=== PATIENT | male | born 1975 | race Caucasian/White ===

== ENCOUNTER 2020-03-28 10:17 | Observation (INO) | payer OTHER, SELFPAY ==
[2020-03-28] VITALS (10 sets, daily range): BP systolic 113–158; BP diastolic 57–93; PULSE 59–80; RESP 16–18; TEMP 36.6–37.6; O2SAT 95–97; BMI 34.6; BMI 33.7
--- NOTE | 2020-03-28 10:22 | EKG12_ITS ---
Test Reason : AM EKG Blood Pressure : / mmHG Vent. Rate : 064 BPM Atrial Rate : 064 BPM P-R Int : 142 ms QRS Dur : 090 ms QT Int : 404 ms P-R-T Axes : 042 040 017 degrees QTc Int : 416 ms Normal sinus rhythm Normal ECG When compared with ECG of 28-MAR-2020 13:03, MANUAL COMPARISON REQUIRED, DATA IS UNCONFIRMED Confirmed by ALFREDO DONALDSON, ANI ([id number]), medical editor JR OCAMPO ([id number]) on 04/01/2020 1:26:27 PM Referred By: DR ROSS Confirmed By:ANI FUENTES MD
--- NOTE | 2020-03-28 10:23 | ED.DCSUM_ITS ---
History of Present Illness Chief Complaint: Neuro S/Sx Informant: Patient Onset: Today Context: Gradual Onset Timing: Continuous Current Severity: Moderate Maximum Severity: Moderate Narrative: The patient is a 44-year-old male with no significant medical history that presents to the emergency department with chest tightness, tingling in his left arm, and dyspnea. Patient states that yesterday, he was just feeling some generalized malaise. He thought it was secondary to the heat. He states today he was at work. He had sudden onset lightheadedness like he was going to pass out. He had tightness across his left chest into his left armpit. He states that his arms and legs felt heavy and he noticed some numbness down his left arm. He is never had symptoms like this before. He does have a remote history of smoking. He has no history of coronary vascular disease. He denies orthopnea or leg swelling. He denies cough. He has had no headache, changes in vision, change in speech, or other neurologic symptoms. He describes it as tingling and not weakness. Prior similar symptoms: No Recent Illness/Hospitalization: No Past Medical History - Allergies and Home Meds Allergies/Adverse Reactions: Allergies No Known Allergies Allergy (Verified 03/28/20 10:17) Primary Care Physician: Preston De La Rosa DO [Primary Care Provider] - Prior records reviewed: Yes Past Medical History: None Surgical History: noncontributory Review of Systems General: Denies: Chills, Fever, Sweats Eyes: Denies: Visual changes - bilaterally, Diplopia ENT: Denies: Rhinorrhea, Sore throat Cardiovascular: Reports: Chest pain. Denies: Palpitations Respiratory: Reports: Dyspnea. Denies: Cough, Dyspnea on exertion Gastrointestinal: Denies: Abdominal pain, Nausea, Vomiting, Diarrhea, Melena, Hematochezia Genitourinary: Denies: Dysuria, Hematuria, Frequency Musculoskeletal: Denies: Back pain, Extremity Pain Skin: Denies: Rash, Wounds Neurological: Reports: Parasthesia. Denies: Headache, Weakness, Numbness Physical Exam Inital Vital Signs reviewed: Yes General: Well nourished, Well developed, No Acute Distress Head: Normocephalic, Atraumatic Eyes: Perrl, EOMI ENT: Moist mucous membranes, No rhinorrhea Neck: Supple, Nontender Cardiovascular: Regular rate, Regular rhythm, No murmurs Respiratory: No distress, CTA bilaterally, Chest nontender Abdomen: Soft, Nontender, Nondistended, Normal bowel sounds Back: Nontender, Normal Inspection Extremities: Nontender, No edema Skin: Normal color, No rash Neurological: Alert, Oriented x3, Cranial nerves II-XII grossly intact, Normal Strength, Normal Sensation Psychological: Normal affect, Normal Mood Diagnostic/Tx/Re-eval Clinical Impression(s) from Imaging Studies Chest X-Ray 03/28/20 10:37 IMPRESSION: Normal x-ray examination of the chest. Electronically Signed: Toni Chaves, at 10:52 EDT , Service support , Abnormal Lab Results 03/28/20 03/28/20 03/28/20 10:20 10:20 10:20 WBC 8.5 RBC 4.75 Hgb 14.8 Hct 44.0 MCV 92.6 MCH 31.2 MCHC 33.6 RDW Std Deviation 40.2 RDW Coeff of Dayanara 11.8 Plt Count 344 MPV 9.1 Immature Gran % (Auto) 0.400 Neut % (Auto) 50.2 Lymph % (Auto) 40.1 [place] % (Auto) 6.6 Eos % (Auto) 1.6 Baso % (Auto) 1.1 H Absolute Neuts (auto) 4.3 Absolute Lymphs (auto) 3.41 Nucleated RBC % 0 Sodium 137 Potassium 3.5 Chloride 104 Carbon Dioxide 27.0 Anion Gap 6 BUN 12 Creatinine 0.89 Estim Creat Clear Calc 107.08 Est GFR (MDRD) Af Amer 118 Est GFR (MDRD) Non-Af 98 BUN/Creatinine Ratio 13.5 Glucose 152 H Calcium 9.2 Troponin I < 0.015 B-Natriuretic Peptide 18.9 POC Glucose 03/28/20 10:20 WBC RBC Hgb Hct MCV MCH MCHC RDW Std Deviation RDW Coeff of Dayanara Plt Count MPV Immature Gran % (Auto) Neut % (Auto) Lymph % (Auto) [place] % (Auto) Eos % (Auto) Baso % (Auto) Absolute Neuts (auto) Absolute Lymphs (auto) Nucleated RBC % Sodium Potassium Chloride Carbon Dioxide Anion Gap BUN Creatinine Estim Creat Clear Calc Est GFR (MDRD) Af Amer Est GFR (MDRD) Non-Af BUN/Creatinine Ratio Glucose Calcium Troponin I B-Natriuretic Peptide POC Glucose 177 H - Rhythm Strip Rhythm Strip: Sinus Rhythm Rate: 80 Ectopy: None - EKG Initial EKG Interpretation: Sinus Rhythm, No Acute Injury Pattern Prior: No Prior - Medical Decision Making The patient presents with intermittent chest pain for the past 24 hours. He states that it was significant today into his left chest and left arm. He also felt short of breath, nauseated, near syncopal. EKG was obtained on patient arrival. It was sinus rhythm. There is no acute ischemia. Patient was kept on a monitor. He had already received aspirin. His pain had resolved and he did not want nitro. Metabolic work-up including cardiac enzymes were negative. The patient did have recurrence of pain that lasted about 5 minutes and then resolved again. With his waxing and waning chest pain, history of smoking, along with the description of his pain, I am concerned for cardiac causes. I do feel that he would best be served with observation for cardiac rule out. Patient was discussed with the hospitalist. Impression 1. Chest pain-concern for ACS ED Disposition - Plan for ED Patient: Referrals: Preston De La Rosa DO [Primary Care Provider] -
[2020-03-28 10:26] LABS: Bedside Glucose 177 mg/dL (70-110)
[2020-03-28 10:31] LABS: Absolute Lymphocyte Count 3.41 X10^3/uL (0.83-4.51); Absolute Neutrophil Count 4.3 X10^3/uL (2.0-7.7); Basophil# 0.09 X10^3/uL; Basophil% 1.1 % (0-1); Eosinophil# 0.14 X10^3/uL; Eosinophils% 1.6 % (0-5); Hemoglobin 14.8 g/dL (13.0-16.5); Lymphocyte # 3.41 X10^3/ul (4.0); Lymphocyte % 40.1 % (19-41); Mean Corp Hgb Conc 33.6 g/dL (32-36); Mean Corpuscular Hgb 31.2 pg (27.0-32.0); Mean Corpuscular Volume 92.6 fL (80-94); Mean Platelet Vol. 9.1 fl (6.2-12.0); Monocyte# 0.56 X10^3/uL; Monocyte% 6.6 % (0-10); NRBC Flagged by Analyzer 0 % (0-5); Neutrophil # 4.28 X10^3/uL (2.7-7.7); Neutrophil % 50.2 % (47-70); Platelet Count 344 K/mm3 (150-450); RBC Distribution Width CV 11.8 % (11.6-14.6); RBC Distribution Width SD 40.2 fl (35.1-43.9); Red Blood Count 4.75 M/mm3 (4.6-6.2); White Blood Count 8.5 K/mm3 (4.4-11.0)
--- NOTE | 2020-03-28 10:37 | RAD_ITS ---
STUDY: X-RAY CHEST REASON FOR EXAM: Male, 44 years old. SOB, DIZZINESS, L ARM NUMBNESS, FATIGUE TECHNIQUE: Single AP portable view of the chest. COMPARISON: None. FINDINGS: EKG electrodes are seen. The lungs are clear and expanded. There is no demonstrated pleural abnormality. Normal size heart. Normal mediastinum and destiney. Normal visualized pulmonary arteries. Normal visualized aortic arch and descending thoracic aorta. Normal visualized thoracic spine. Normal visualized ribs, clavicles, and shoulders. There is no demonstrated abnormality of the visualized soft tissue structures of the upper abdomen. RAD/Chest 1 View (Portable) IMPRESSION: Normal x-ray examination of the chest. Electronically Signed: Toni Chaves, at 10:52 EDT , Service support ,
[2020-03-28 10:49] LABS: Anion Gap 6 (5-15); BNP,B-Type NATRIURETIC PEPTIDE 18.9 pg/mL (0-100); BUN 12 mg/dL (7-18); BUN/Creat Ratio 13.5 RATIO (10-20); Calcium,Total 9.2 mg/dL (8.5-10.1); Chloride 104 mmol/L (98-107); Creatinine, Serum 0.89 mg/dL (0.70-1.30); EST Glomerular Filtration Rate 98 mL/min (>60); Est Glom Filt Rate - Afr Amer 118 mL/min (>60); Estimated Creatinine Clearance 107.08 ml/min; Glucose 152 mg/dL (74-106); Potassium 3.5 mmol/L (3.5-5.1); Sodium Level 137 mmol/L (136-145)
--- NOTE | 2020-03-28 12:16 | HP.PCM_ITS ---
Problem List (1) Chest pain Status: Acute History of Present Illness Date of Admission: 03/28/20 Chief Complaint: Left arm tingling, dizziness, chest pressure. The patient is a 44 year old M with no significant past medical history presented to the emergency room because of tingling in the left arm, dizziness and chest tightness. His symptoms started this morning after he went to work, started having tingling and numbness on the left arm, became dizzy and lightheaded and he started having chest pain. Chest pain was in the left side, pressure-like pain, 2 out of 10 in severity, not radiating, associated with dizziness, palpitation as well as shortness of breath and he was about to pass out. There was no aggravating or relieving factors. His gave him 4 tabs of aspirin on the way to the emergency department. He denied blurred vision, sl urred speech, focal arm or leg weakness. At this time, he mentioned the chest pressure is getting better and all over, he is feeling better. In the emergency department, his blood pressure was slightly elevated, other vital signs were stable. Routine blood work was remarkable for glucose of 152, 177 but patient mentioned that he drank a can of Mountain Dew. Other routine blood work was unremarkable. EKG revealed normal sinus rhythm, normal GA interval, normal QRS, no ischemic changes or cardiac arrhythmias. Troponin and BNP were normal. Chest x-ray shows no acute findings. He is being admitted for atypical chest pain for evaluation. Past Medical History Allergies No Known Allergies Allergy (Verified 03/28/20 10:17) Home Medications: Ambulatory Orders Medication Instructions Recorded Colostrum, Bovine [Colostrum] 500 mg PO DAILY 03/28/20 Multivitamins,Therapeutic 1 tab PO DAILY 03/28/20 [Multivitamin] Surgical History: noncontributory Psychiatric History: No pertinent psych hx Lives: Spouse/ Significant Other Smoking Status: Former smoker Alcohol: None Drugs: None - *Family History Paternal History Items: No pertinent history Maternal History Items: No pertinent history Review of Systems Constitutional: Denies: Anorexia, Chills, Fever, Weakness Eyes: Denies: Blurred vision, Double vision, Drainage, Redness HEENT: Denies: Difficulty Hearing, Ear Pain, Eye Pain, Nasal Congestion, Sore Throat Cardiovascular: Reports: Chest Pain, Chest Pressure, Light Headedness. Denies: Edema, Heaviness, Orthopnea, Palpitations, Paroxysmal Noc. Dyspnea, Syncope Respiratory: Reports: Shortness of Breath. Denies: Cough, Pleuritic Pain, Sputum production, Wheezing Gastrointestinal: Denies: Abdominal Pain, Constipation, Diarrhea, Nausea, Vomiting Genitourinary: Denies: Dysuria, Frequency, Hematuria Musculoskeletal: Denies: Arm Pain, Back Pain, Foot Pain Skin: Denies: Dryness, Rash Neurological: Reports: Numbness, Tingling. Denies: Balance problems, Double vision, Change in Speech, Confusion, Focal weakness, Headaches Psychiatric: Denies: Anxiety, Depression Endocrine: Denies: Change in Body Habitus, Polydipsia, Polyuria VTE Information - Inpt Only VTE Present on Admission: No VTE Mechan Device Prophylaxis: None VTE Pharm Prophylaxis ordered?: No Patient Problems: Active and Suspected Problems Chest pain (Acute) - Physical Exam Vitals/I&O's: Vital Signs Temp Pulse Resp BP Pulse Ox 98.5 F 80 16 158/93 H 96 03/28/20 11:21 03/28/20 10:18 03/28/20 10:18 03/28/20 10:18 03/28/20 10:26 Oxygen Delivery Method Room Air Weight: 241 lb 2.971 oz Body Mass Index (BMI) 34.6 Finger Stick Blood Glucose 177 General: Alert, Oriented x3, Cooperative, No apparent distress HEENT: Atraumatic, PERRLA, EOMI, Normocephalic Oral: Moist Mucosa, No Gingival or Mucosal Lesions/ Ulcerations Neck: Supple, No JVD, Negative Carotid Bruits, Trachea Midline, Thyroid Normal Size and Texture Lungs: Clear to auscultation, Normal air movement, No rhonchi, No wheeze, No rales Cardiovascular: Regular rate, Regular Rhythm, Normal S1, Normal S2, No murmurs, PMI Normal Abdomen: Bowel Sounds Present, Soft, Non Tender, Non-Distended, No Hepato- splenomegaly Extremities: No clubbing, No cyanosis, No edema Skin: No rashes, No breakdown Lymphatic: No Cervical, Supraclavicular, or Inguinal Adenopathy Neurological: Cranial nerves II-XII grossly intact, Motor Exam 5/5 strength throughout Psych/Mental Status: Normal Affect, Appropriate, Alert and oriented to time, place, person, mood and affect Laboratory Results 03/28/20 10:20: WBC 8.5, RBC 4.75, Hgb 14.8, Hct 44.0, MCV 92.6, MCH 31.2, MCHC 33.6, RDW Std Deviation 40.2, RDW Coeff of Dayanara 11.8, Plt Count 344, MPV 9.1, Immature Gran % (Auto) 0.400, Neut % (Auto) 50.2, Lymph % (Auto) 40.1, [place] % (Auto) 6.6, Eos % (Auto) 1.6, Baso % (Auto) 1.1 H, Absolute Neuts (auto) 4.3, Absolute Lymphs (auto) 3.41, Nucleated RBC % 0 03/28/20 10:20: Sodium 137, Potassium 3.5, Chloride 104, Carbon Dioxide 27.0, Anion Gap 6, BUN 12, Creatinine 0.89, Estim Creat Clear Calc 107.08, Est GFR (MDRD) Af Amer 118, Est GFR (MDRD) Non-Af 98, BUN/Creatinine Ratio 13.5, Glucose 152 H, Calcium 9.2, Troponin I < 0.015 03/28/20 10:20: B-Natriuretic Peptide 18.9 03/28/20 10:20: POC Glucose 177 H Clinical Impression(s) from Imaging Studies Chest X-Ray 03/28/20 10:37 IMPRESSION: Normal x-ray examination of the chest. Electronically Signed: Toni Chaves, at 10:52 EDT , Service support , Current Medications Nitroglycerin (Nitrostat) 0.4 mg SUBLINGUAL Q5M PRN PRN Reason: Chest pain Assessment/Plan All Active Problems Chest pain (Acute) This is a 44 years old male patient presented to the emergency room because of left arm numbness, dizziness followed by chest pressure and is being admitted for evaluation. #1 atypical chest pain: Risk factors are history of smoking, he quit smoking now. No family history of treatment of CAD. No personal or family history of diabetes, hypertension hyperlipidemia. EKG revealed no acute ischemic changes. Troponin was negative. Plan: Admit to PCU observation, cardiac monitoring, serial cardiac enzymes, repeat EKG tomorrow morning, lipid profile, start baby a spirin, sublingual nitroglycerin PRN, nuclear stress test tomorrow morning if cardiac enzymes are negative. #2 near syncopal episode: Could be related to this chest pain versus cardiac arrhythmias. Patient reported that he was having palpitation and he was about to pass out. Plan: youth nutritional monitor, 2D echocardiogram. #3 hyperglycemia: Patient took a can of Mountain Dew, no history of diabetes. Will check hemoglobin A1c. #4 DVT prophylaxis: Low risk patient, no prophylaxis indicated. This note was generated with [employer] dictation software. It may contain incorrect words, spelling, and punctuation that were not noted in checking the note before signing. OBSV E&M: 76587 Initial observation care L3
--- NOTE | 2020-03-28 13:03 | EKG12_ITS ---
Test Reason : CP ADMISSION Blood Pressure : / mmHG Vent. Rate : 066 BPM Atrial Rate : 066 BPM P-R Int : 136 ms QRS Dur : 092 ms QT Int : 408 ms P-R-T Axes : 039 035 013 degrees QTc Int : 427 ms Normal sinus rhythm Normal ECG No previous ECGs available Confirmed by ALFREDO DONALDSON, ANI ([id number]), editorial director JP VERONICA ([id number]) on 04/01/2020 3:28:25 PM Referred By: CODY Confirmed By:ANI FUENTES MD
--- NOTE | 2020-03-28 13:18 | ECHOD_ITS ---
Reason For Study: SYNCOPE/NEAR SYNCOPE Procedure This was a 2D Doppler, Color Flow transthoracic echocardiogram. Exam performed portable in patient room. Left Ventricle Normal LV size. Left ventricular systolic function is normal. The estimated ejection fraction is 60 %. No evidence for diastolic dysfunction. No regional wall motion abnormalities noted. Right Ventricle Normal RV size. Normal systolic function. Atria Normal left atrium. Normal right atrium. Mitral Valve Normal mitral valve. Tricuspid Valve Normal tricuspid valve. Aortic Valve Normal aortic valve. Pulmonic Valve Normal pulmonic valve. Great Vessels Normal aortic root. The pulmonary artery is normal size. Normal inferior vena cava. Pericardium/Pleural No pericardial effusion. MMode/2D Measurements & Calculations LVIDd: 4.9 cm IVSd: 1.0 cm Ao root diam: 3.4 cm LVIDs: 3.1 cm LVPWd: 0.91 cm FS: 37.3 % LAV(MOD-bp): 68.9 ml LA A4 area: 21.5 cm2 LA dimension(2D): 4.0 cm LAV(MOD-bp) Indexed: 30.9 ml/m2 LAV(MOD-sp2): 59.7 ml LAV(MOD-sp4): 59.4 ml RA A4 area: 15.2 cm2 Time Measurements MV dec time: 0.19 sec Doppler Measurements & Calculations MV E max lauro: 83.7 cm/sec Lat Peak E' Lauro: 9.9 cm/sec Med Peak E' Lauro: 10.8 cm/sec MV A max lauro: 54.0 cm/sec E/E' lat: 8.5 E/E' med: 7.8 MV E/A: 1.5 Ao V2 max: 129.9 cm/sec LV V1 max: 110.5 cm/sec PA V2 max: 95.2 cm/sec Ao max P.8 mmHg LV V1 max P.9 mmHg Interpretation Summary Normal LV size. Left ventricular systolic function is normal. The estimated ejection fraction is 60 %. No evidence for diastolic dysfunction. Ordering Physician: Sony Platt Referring Physician: Preston De La Rosa Performed By: Luz Bennett, MARU, RVT
[2020-03-28 14:49] LABS: Thyroid Stim Hormone (TSH) 1.57 uIU/mL (0.358-3.74)
[2020-03-28 14:56] LABS: Hemoglobin A1c 5.7 % (3.8-5.6)
[2020-03-29 03:00] VITALS: PULSE 63
[2020-03-29 03:30] VITALS: BP 105/61; PULSE 64; RESP 16; TEMP 36.8; O2SAT 95
[2020-03-29 05:48] LABS: Cholesterol 170 mg/dL (200); High Density Lipoprotein 38 mg/dL; Triglycerides 112 mg/dL; Very Low Density Lipoprotein 22 mg/dL (5-40)
--- NOTE | 2020-03-29 05:55 | EKG12_ITS ---
Test Reason : DYSRHYTHMIA Blood Pressure : / mmHG Vent. Rate : 069 BPM Atrial Rate : 069 BPM P-R Int : 140 ms QRS Dur : 090 ms QT Int : 380 ms P-R-T Axes : 043 032 013 degrees QTc Int : 407 ms Normal sinus rhythm Normal ECG Confirmed by ALFREDO DONALDSON, ANI ([id number]), writer editor JR OCAMPO ([id number]) on 04/01/2020 8:11:58 AM Referred By: MOHINI Confirmed By:ANI FUENTES MD
[2020-03-29] MEDS: Aspirin E.C. 81 MG Tablet PO (06:31)
[2020-03-29 07:01] VITALS: PULSE 83
[2020-03-29 08:05] VITALS: O2SAT 96
[2020-03-29 10:11] VITALS: BP 133/81; PULSE 84; RESP 16; TEMP 36.7; O2SAT 96
--- NOTE | 2020-03-29 10:22 | STRESSREP ---
Stress Test Report Exercise myocardial perfusion stress test. 44-year-old male with a history of chest pain. Stress protocol: Resting EKG demonstrates normal sinus rhythm with a rate of 66 bpm normal intervals are noted resting blood pressure is 118/82 mmHg. The patient exercised according to regular [place] protocol for a total duration of 9 minutes. The maximum heart rate attained was 157 bpm which was 90% of maximum predicted heart rate the maximum workload was 10.1 metabolic equivalents. At rest there were no ST or T wave changes noted suggest ischemia. At peak exercise there were no ST or T wave changes noted to suggest ischemia. The resting blood pressure was 118/82 with a peak blood pressure 180/60 mmHg. No clinical angina was noted the test was terminated due to leg discomfort and the target heart rate being achieved. Myocardial perfusion protocol. 14.1 mCi of technetium 99m sestamibi was injected at rest. Patient exercised for a total duration of 9 minutes at peak exercise 44.4 mCi of technetium 99m sestamibi was injected stress images were obtained stress and rest images were reconstructed and compared in the short axis vertical long horizontal long axis. Gated images were also obtained Perfusion SPECT analysis: Review of the stress images demonstrate normal uptake of tracer noted in all areas of myocardium. The resting images similar demonstrate normal uptake of tracer noted in all areas of the myocardium. No previous infarct is noted no ischemia is present. Gated SPECT analysis: The gated ejection fraction is 64%. Conclusion: Normal exercise myocardial perfusion stress test at a high workload. Preserved ejection fraction. No clinical angina noted.
--- NOTE | 2020-03-29 10:36 | DCINST_ITS ---
- Discharge Diagnoses Current Active Problems: Current Active and Chronic Problems Chest pain (Acute) You will use the following diet at home:: Regular Your food should be the consistency of: Regular Discharge Activity: Return to Normal Activity Weight Bearing Status: Full weight bearing Call your doctor if you observe: Fever of 101 or Higher, Shortness of breath, Dizziness, Fainting spells, Chest pain, Increased palpitations (irregular heartbeat), Uncontrolled pain Allergies/Adverse Reactions: Allergies No Known Allergies Allergy (Verified 03/28/20 10:17) Medications to take at Discharge Colostrum, Bovine [Colostrum] 500 mg PO DAILY 03/28/20 Multivitamins,Therapeutic [Multivitamin] 1 tab PO DAILY 03/28/20 Primary Care Physician: Preston De La Rosa DO [Primary Care Provider] - Please follow up with your Primary Care Physician in: 2-4 weeks. Test Results: Test results from this visit will be discussed in further detail at your follow- up appointment, if applicable.
--- NOTE | 2020-03-29 10:51 | DS.PCM_ITS ---
Discharge Date and Diagnosis - Problem List Patient Problems: Active and Suspected Problems Chest pain (Acute) Date of Admission: 03/28/20 Date of Discharge: 03/29/20 - Primary Discharge Diagnosis Acute Problems: Active Problems Atypical chest pain, ACS ruled out. Hospital Course and Treatment Imaging Results: 03/29/20 09:00 Nuclear Stress Test - Treadmil [NM] Routine Clinical Impression(s) from Imaging Studies Chest X-Ray 03/28/20 10:37 IMPRESSION: Normal x-ray examination of the chest. Electronically Signed: Toni Dalymerritt, at 10:52 EDT , Service support , Operations: None Procedures: 2-D Echocardiogram, EKG, Stress test Summary of Care Provided: The patient is a 44 year old M presented to the emergency room because of left arm numbness, dizziness followed by chest pressure and palpitation with dizziness and he was admitted for atypical chest pain for evaluation. Initial EKG revealed normal sinus rhythm without evidence of acute ischemic changes or cardiac arrhythmias. Chest x-ray showed no acute findings. There was no other symptoms suggestive of stroke. Denied blurred vision, slurred speech, focal arm or leg weakness. Troponin was negative x3. 2D echocardiogram done and revealed normal LV size and function, ejection fraction was 60%, no significant valvular heart disease. Overnight, there was no evidence of cardiac arrhythmias on telemetry. Today, patient went for nuclear stress test that showed no evidence of stress-induced myocardial ischemia, ejection fraction was 64%. ACS ruled out. Patient is improved. His vital signs were stable. Routine blood work was unremarkable. Lipid profile revealed total cholesterol of 170, LDL cholesterol of 110, HDL cholesterol of 38. TSH was normal. Patient discharged home in a stable condition, recommended follow-up with PCP in 2 to 4 weeks. Patient Problems: Active and Suspected Problems Chest pain (Acute) - Physical Exam Vitals/I&O's: Vital Signs Temp Pulse Resp BP Pulse Ox 98.1 F 84 16 133/81 H 96 03/29/20 10:11 03/29/20 10:11 03/29/20 10:11 03/29/20 10:11 03/29/20 10:11 Oxygen Delivery Method Room Air Weight: 234 lb 12.677 oz Body Mass Index (BMI) 33.7 Finger Stick Blood Glucose 177 Intake and Output for Last 24 Hours 03/27/20 03/28/20 03/29/20 23:59 23:59 23:59 Intake Total 1070 / 1070 0 / 0 Balance 1070 / 1070 0 / 0 General: Alert, Oriented x3, Cooperative, No apparent distress HEENT: Atraumatic, PERRLA, EOMI, Normocephalic Oral: Moist Mucosa, No Gingival or Mucosal Lesions/ Ulcerations Neck: Supple, No JVD, Negative Carotid Bruits, Trachea Midline, Thyroid Normal Size and Texture Lungs: Clear to auscultation, Normal air movement, No rhonchi, No wheeze, No rales Cardiovascular: Regular rate, Regular Rhythm, Normal S1, Normal S2, PMI Normal Abdomen: Bowel Sounds Present, Soft, Non Tender, Non-Distended, No Hepato- splenomegaly Extremities: No clubbing, No cyanosis, No edema Skin: No rashes, No breakdown Lymphatic: No Cervical, Supraclavicular, or Inguinal Adenopathy Neurological: Cranial nerves II-XII grossly intact, Neuro grossly intact Psych/Mental Status: Normal Affect, Appropriate Laboratory Results 03/28/20 13:40: Hemoglobin A1c 5.7 H 03/28/20 13:40: TSH 1.57 03/28/20 13:40: Troponin I < 0.015 03/28/20 16:25: Troponin I < 0.015 03/29/20 05:10: Triglycerides 112, Cholesterol 170, LDL Cholesterol 110, VLDL Cholesterol 22, HDL Cholesterol 38 L Current Medications Acetaminophen (Tylenol) 650 mg PO Q6H PRN PRN PRN Reason: Pain Score 1-10/Temp > 100.7 F Aspirin (Ecotrin) 81 mg PO DAILY@0800 [facility] Last Admin: 03/29/20 06:31 Dose: 81 mg Documented by: Nitroglycerin (Nitrostat) 0.4 mg SUBLINGUAL Q5M PRN PRN Reason: CARDIAC/CHEST PAIN Ondansetron HCl (Zofran) 4 mg IV Q8H PRN PRN PRN Reason: NAUSEA/VOMITING Sodium Chloride () 10 - 40 ml IV UD PRN PRN Reason: SALINE FLUSH Discharge Activity: Return to Normal Activity Weight Bearing Status: Full weight bearing Call your doctor if you observe: Fever of 101 or Higher, Shortness of breath, Dizziness, Fainting spells, Chest pain, Increased palpitations (irregular heartbeat), Uncontrolled pain Home Medications: Medications to take at Discharge Colostrum, Bovine [Colostrum] 500 mg PO DAILY 03/28/20 Multivitamins,Therapeutic [Multivitamin] 1 tab PO DAILY 03/28/20 Primary Care Physician: Preston De La Rosa DO [Primary Care Provider] - Please follow up with your Primary Care Physician in: 2-4 weeks. Please Follow Up With: Preston De La Rosa DO Disposition: Home Minutes spent on discharge:: 26 Patient Condition:: Stable Medical Necessity - Tobacco Use Smoking Status: Former smoker Meaningful Use Info Meaningful Use Diagnoses (Choose all that apply): None applicable OBSV E&M: 84372 Observation care discharge
--- NOTE | 2020-03-29 11:38 | PHA.DC.MR ---
Pharmacy Service has performed discharge medication reconciliation for this patient. No new medications at time of discharge. Medications reviewed are previously reported home medications. The patient's discharge medication list was reviewed for discrepancies and discrepancies were resolved. Home Medications Colostrum, Bovine [Colostrum] 500 mg PO DAILY 03/28/20 Multivitamins,Therapeutic [Multivitamin] 1 tab PO DAILY 03/28/20
== END 2020-03-29 10:36 | disposition home or self-care (01) ==
LOC: ED 10:58 → PCU 12:27
PROVIDERS: Admitting Provider Hospitalist; Emergency Provider Emergency Medicine; PCP Family Medicine; Visit Provider Hospitalist
DX: R07.89 Other chest pain (principal); R55 Syncope and collapse; R20.2 Paresthesia of skin; R06.00 Dyspnea, unspecified; Z87.891 Personal history of nicotine dependence; R73.9 Hyperglycemia, unspecified
CPT/HCPCS: 36415; 71045; 78452; 80048; 80061; 82962; 83036; 83880; 84443; 84484; 85025; 93005; 93017; 93306; 99218; 99284; A9500; A4216; G0378

== ENCOUNTER 2020-12-24 04:27 | Emergency (ER) | payer OTHER, SELFPAY ==
[2020-03-28 12:52] VITALS: BMI 33.7
[2020-12-24 04:28] VITALS: BP 138/80; PULSE 78; RESP 19; TEMP 36.9; O2SAT 96; BMI 34.4
[2020-12-24 04:32] VITALS: RESP 16
[2020-12-24 04:39] VITALS: BP 138/80; PULSE 78; RESP 16; TEMP 36.9; O2SAT 96
--- NOTE | 2020-12-24 04:51 | ED.DCSUM_ITS ---
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 Negative for: Vomiting - Diarrhea/Melena/Hematochezia GI Symptom: Diarrhea. Negative for: Melena, Hematochezia Onset: Hours - 4 Stool Quality: Watery Severity: Severe Associated Symptoms: Negative for: Dysuria, Frequency, Hematuria, Urgency Narrative: Patient states his entire family has had stomach flu here within the last couple days, he started getting symptoms tonight around 4 hours prior to arrival. He was having lots of diarrhea, when he stood up to go to the bathroom tonight, he started feeling lightheaded and nearly passed out a couple different times but never lost consciousness. He did not have any other prodromal symptoms except for lightheadedness. Feels nauseated but has not vomited. He states simultaneously, his was vomiting, they have 4 kids and they were all vomiting, so he presented for in the morning by EMS and states it was total chaos. No history of C. difficile, no recent travel out of the area, no recent antibiotics. Denies uncooked or undercooked meat. Past Medical History - Allergies and Home Meds Allergies/Adverse Reactions: Allergies No Known Allergies Allergy (Verified 12/24/20 04:32) Primary Care Physician: Preston De La Rosa DO [Primary Care Provider] - Past Medical History: None Surgical History: - - Knee. No abdominal surgeries. Lives: With Family Smoking Status: Never smoker - Family History Paternal Family History: Reports: No pertinent history Maternal Family History: Reports: No pertinent history Review of Systems General: Reports: Malaise. Denies: Chills, Fever, Sweats Eyes: Denies: Visual changes - bilaterally, Diplopia ENT: Denies: Rhinorrhea, Sore throat Cardiovascular: Denies: Chest pain, Palpitations Respiratory: Denies: Dyspnea, Cough, Dyspnea on exertion Gastrointestinal: Reports: Abdominal pain, Nausea, Diarrhea. Denies: Vomiting, Melena, Hematochezia Genitourinary: Denies: Dysuria, Hematuria, Frequency Musculoskeletal: Denies: Myalgias, Back pain, Swelling, Extremity Pain Skin: Denies: Rash, Wounds Neurological: Denies: Headache, Weakness, Numbness Physical Exam Vital Signs/Narrative: Vital Signs Temp Pulse Resp BP Pulse Ox 12/24/20 04:39 98.4 F 78 16 138/80 H 96 12/24/20 04:32 16 12/24/20 04:28 98.4 F 78 19 H 138/80 H 96 Inital Vital Signs reviewed: Yes General: Well nourished, Well developed, No Acute Distress Head: Normocephalic, Atraumatic Eyes: Perrl, EOMI ENT: Moist mucous membranes, No rhinorrhea Neck: Supple, Nontender Cardiovascular: Regular rate, Regular rhythm, No murmurs. Negative for: Tachycardia Respiratory: No distress, CTA bilaterally, Chest nontender Abdomen: Soft, Nontender, Nondistended, Normal bowel sounds Back: Nontender, Normal Inspection Extremities: Nontender, No edema Skin: Normal color, No rash, No Trauma Neurological: Alert, Oriented x3, Cranial nerves II-XII grossly intact, Normal Strength, Normal Sensation Psychological: Normal affect, Normal Mood Diagnostic/Tx/Re-eval Laboratory Results 12/24/20 12/24/20 04:32 05:15 WBC 17.1 H RBC 5.21 Hgb 15.7 Hct 48.3 MCV 92.7 MCH 30.1 MCHC 32.5 RDW Std Deviation 41.8 RDW Coeff of Dayanara 12.2 Plt Count 359 MPV 10.0 Immature Gran % (Auto) 0.400 Neut % (Auto) 82.8 H Lymph % (Auto) 8.9 L [place] % (Auto) 4.8 Eos % (Auto) 2.6 Baso % (Auto) 0.5 Absolute Neuts (auto) 14.2 H Absolute Lymphs (auto) 1.53 Nucleated RBC % 0 Sodium 139 Potassium 4.2 Chloride 108 H Carbon Dioxide 27.0 Anion Gap 4 L BUN 18 Creatinine 1.04 Estim Creat Clear Calc 90.67 Est GFR (MDRD) Af Amer 98 Est GFR (MDRD) Non-Af 81 BUN/Creatinine Ratio 17.3 Glucose 140 H Calcium 9.1 Total Bilirubin 0.50 AST 19 ALT 39 Alkaline Phosphatase 61 Total Protein 8.1 Albumin 4.2 Globulin 3.9 Albumin/Globulin Ratio 1.1 Lipase 74 - Medical Decision Making Patient was treated with an IV fluid bolus, Zofran, and a GI cocktail. All of his symptoms improved but he still felt a little nauseated so he was additionally given oral Phenergan. He was tolerating oral fluids. He does have a leukocytosis, and he did not have any diarrhea while in the emergency department for 2.5 hours. He wanted to go home. He is amenable to supportive care and a stool collection kit along with a prescription for outpatient enteric pathogen testing to rule out bacterial etiologies. He is an immunocompetent healthy male, and most bacterial enteric pathogen treatment courses include supportive care in the beginning without antibiotics so no empiric antibiotic treatment in my opinion is warranted right now since he has no red flags except for multiple family members with the same symptoms, lending more toward viral etiology anyhow. ED Disposition - Plan for ED Patient: Disposition: Home or Assisted Living Diagnosis: Gastroenteritis Instructions: ED Food Poison Or Gastroenteritis Prescriptions: Dicyclomine HCl [Bentyl] 1 - 2 cap PO Q6H PRN #20 capsule PRN Reason: abdominal pain Transmission Status: Pending to [facility] proMETHazine tablet [Phenergan tablet] 25 mg PO Q6H PRN PRN #20 tab PRN Reason: Nausea Transmission Status: Pending to [facility] Referrals: Preston De La Rosa DO [Primary Care Provider] - 3-5 Days Additional Instructions: If you are able to collect diarrhea, take it in the prescription to your nearest outpatient lab or here to the hospital within several hours. You may place it in a refrigerator temporarily for up to 8 hours if needed.
[2020-12-24 05:08] LABS: Absolute Lymphocyte Count 1.53 X10^3/uL (0.83-4.51); Absolute Neutrophil Count 14.2 X10^3/uL (2.0-7.7); Basophil# 0.08 X10^3/uL; Basophil% 0.5 % (0-1); Eosinophil# 0.44 X10^3/uL; Eosinophils% 2.6 % (0-5); Hematocrit 48.3 % (40-54); Hemoglobin 15.7 g/dL (13.0-16.5); Lymphocyte # 1.53 X10^3/ul (4.0); Lymphocyte % 8.9 % (19-41); Mean Corp Hgb Conc 32.5 g/dL (32-36); Mean Corpuscular Hgb 30.1 pg (27.0-32.0); Mean Corpuscular Volume 92.7 fL (80-94); Monocyte# 0.83 X10^3/uL; Monocyte% 4.8 % (0-10); NRBC Flagged by Analyzer 0 % (0-5); Neutrophil # 14.19 X10^3/uL (2.7-7.7); Neutrophil % 82.8 % (47-70); Platelet Count 359 K/mm3 (150-450); RBC Distribution Width CV 12.2 % (11.6-14.6); RBC Distribution Width SD 41.8 fl (35.1-43.9); Red Blood Count 5.21 M/mm3 (4.6-6.2); White Blood Count 17.1 K/mm3 (4.4-11.0)
[2020-12-24] MEDS: Mag Hydrox/Al Hydrox/Simeth 30 ML UDC PO (05:13)
[2020-12-24] MEDS: 0.9% Normal Saline 1,000 ML 999 ML IV (05:13)
[2020-12-24] MEDS: Ondansetron 4 MG/2 ML Vial IV (05:13)
[2020-12-24 05:36] LABS: ALB/GLOB Ratio 1.1 RATIO (0.9-2.4); AST(SGOT) 19 U/L (15-37); Alanine Aminotransfer ALT/SGPT 39 U/L (16-61); Albumin, Serum 4.2 g/dL (3.2-5.0); Alkaline Phosphatase 61 U/L (45-117); Anion Gap 4 (5-15); BUN 18 mg/dL (7-18); BUN/Creat Ratio 17.3 RATIO (10-20); Calcium,Total 9.1 mg/dL (8.5-10.1); Chloride 108 mmol/L (98-107); Creatinine, Serum 1.04 mg/dL (0.70-1.30); EST Glomerular Filtration Rate 81 mL/min (>60); Est Glom Filt Rate - Afr Amer 98 mL/min (>60); Estimated Creatinine Clearance 90.67 ml/min; Globulin 3.9 g/dL (2.2-4.2); Glucose 140 mg/dL (74-106); Lipase 74 U/L (73-393); Potassium 4.2 mmol/L (3.5-5.1); Protein, Total 8.1 g/dL (6.4-8.2); Sodium Level 139 mmol/L (136-145)
[2020-12-24 06:06] VITALS: BP 138/80; PULSE 78; RESP 16; TEMP 36.9; O2SAT 96
== END 2020-12-24 07:14 | disposition home or self-care (01) ==
PROVIDERS: Emergency Provider Emergency Medicine; PCP Family Medicine
DX: K52.9 Noninfective gastroenteritis and colitis, unspecified (principal)
CPT/HCPCS: 80053; 83690; 85025; 96361; 96374; 99285; J7030; A4216; J2405

== ENCOUNTER 2024-11-21 10:28 | Inpatient (IN) | payer SELFPAY ==
[2024-11-21] VITALS (8 sets, daily range): BP systolic 117–136; BP diastolic 54–117; PULSE 68–109; RESP 14–18; TEMP 36.4–36.8; O2SAT 92–98; BMI 34.2
--- NOTE | 2024-11-21 11:39 | EKG12_ITS ---
Test Reason : SOB Blood Pressure : */* mmHG Vent. Rate : 88 BPM Atrial Rate : 88 BPM P-R Int : 162 ms QRS Dur : 80 ms QT Int : 388 ms P-R-T Axes : 42 17 19 degrees QTcB Int : 469 ms Normal sinus rhythm Normal ECG Confirmed by Joesph Hardy ([id number]), magazine editor JR OCAMPO ([id number]) on 11/23/2024 6:51:06 AM Referred By: Confirmed By: Joesph Hardy
--- NOTE | 2024-11-21 11:43 | ED.VIS.DYS ---
HPI History of Present Illness Chief Complaint: Shortness of Breath Informant: patient and spouse/S.O. Narrative Narrative: 49-year-old male presenting to the emergency room out of concern for pulmonary embolism. Patient states that he went to see his orthopedic surgeon Dr. Grimaldo today. He mentioned over the past couple days he has noted some shortness of breath with exertion. 6 weeks ago he underwent a meniscal repair of the left knee. He has been nonweightbearing. He denies any fever or cough. No chest pain. Denies any significant leg pain or swelling. He has been taking 2 baby aspirin per day. He notes he was given clearance for weightbearing today. Hindsight after his ED course the patient notes that evening he had a sudden onset of the shortness of breath with some chest discomfort which he related to indigestion. [facility] Medical History Meniscal injury Home Medications ?Medication ?Instructions ?Recorded ?Last Taken ?Type colostrum, bovine 500 mg capsule 500 mg PO DAILY supplement 03/28/20 03/28/20 08:00 History multivitamin with folic acid 400 1 tab PO DAILY vitamin 03/28/20 03/28/20 08:00 History mcg tablet aspirin 81 mg chewable tablet 1 tab PO DAILY 11/21/24 Unknown History Allergy/AdvReac Type Severity Reaction Status Date / Time peanut Allergy Other Verified 11/21/24 10:32 Surgical History S/P medial meniscal repair S/P lateral meniscal repair Social History Smoking Status: Former smoker ROS ROS ED Constitutional Constitutional ED: Denies chills, fever(s) or weight loss Eyes Eyes: Denies change in vision or diplopia ENT ENT ED: Denies ear pain, rhinorrhea or sore throat Cardiovascular Cardiovascular: Denies chest pain, orthopnea, palpitations or racing heartbeat Respiratory/Chest Respiratory/Chest: Reports dyspnea on exertion; Denies cough, dyspnea or orthopnea Gastrointestinal Gastrointestinal: Denies abdominal pain, diarrhea, nausea or vomiting Genitourinary Genitourinary ED: Denies dysuria, hematuria or urinary frequency Musculoskeletal Musculoskeletal: Denies arthralgias or myalgias Integumentary Denies abscess or rash Neurologic Neurologic: Denies headache(s) or weakness Psychiatric Psychiatric: Denies anxiety, depression, suicidal ideation or suicidal thoughts Endocrine Endocrinology: Denies polydipsia, polyphagia or polyuria Allergic/Immunologic Allergic/Immunologic ED: Denies mouth swelling, tongue swelling or urticaria EXAM Physical Exam Const Vital Signs: 11/21/24 10:28 11/21/24 10:49 11/21/24 12:28 Temperature 98.2 F Temperature Source Oral Pulse Rate 109 H 81 Respiratory Rate 18 15 Respiratory Effort Normal Short of Breath Blood Pressure 136/95 H 121/79 H Blood Pressure Mean 108 93 Pulse Ox 98 95 Oxygen Delivery Method Room Air Room Air Room Air Positive well nourished and well developed General Appearance ED: well developed and NAD HEENT Reports normocephalic, head/scalp atraumatic and moist mucous membranes Eyes PERRL and EOMs intact bilaterally Neck no lymphadenopathy, supple and no JVD Resp normal respiratory effort and clear to auscultation bilaterally Cardio regular rate, regular rhythm and no murmurs GI normal to inspection, nondistended, normoactive bowel sounds and non-tender Palpation: soft Back/Spine no CVA tenderness and normal ROM Extremity normal to inspection General Extremety ED: Negative for edema General Extremity: Negative for edema Neuro oriented x3 and CN's II-XII intact bilaterally Sensorium / Orientation: alert Motor Exam: strength 5/5 throughout Psych mental status grossly normal Mood & Affect: Negative for depressed or tearful Skin no rashes or lesions noted and no wounds MDM MDM MDM Narrative Medical decision making narrative: Differential diagnosis includes but not limited to pneumonia congestive heart failure pulmonary embolism pleural effusion viral syndrome deconditioning White count 10.4 hemoglobin 14.5. Troponin is 13. Creatinine 0.82. EKG shows a normal sinus rhythm with a ventricular rate of 88 bpm. CTA of the chest demonstrated nonocclusive right pulmonary emboli. I discussed the case with vascular surgery for possible thrombectomy as well as with her hospitalist and updated the patient's orthopedic surgeon. Patient was placed on a heparin drip and plan is admission in the hospital. History & Record Review Discussion w/independent historian: Patient and Significant other Lab Data Attestation: I reviewed the patient's lab results. Labs: Laboratory Results - last 24 hr 11/21/24 11:17 WBC 10.4 RBC 4.74 Hgb 14.5 Hct 42.2 MCV 89.0 MCH 30.6 MCHC 34.4 RDW Std Deviation 39.2 RDW Coeff of Dayanara 11.9 Plt Count 365 MPV 9.4 Immature Gran % (Auto) 0.800 Neut % (Auto) 56.6 Lymph % (Auto) 30.1 Ramsey % (Auto) 8.5 Eos % (Auto) 2.8 Baso % (Auto) 1.2 H Absolute Neuts (auto) 5.9 Absolute Lymphs (auto) 3.14 Nucleated RBC % 0 PT 14.1 INR 1.1 APTT 26.3 Sodium 140 Potassium 4.4 Chloride 104 Carbon Dioxide 23.4 Anion Gap 13 BUN 18 Creatinine 0.82 Estim Creat Clear Calc 135.34 Est GFR (MDRD) Non-Af 106 BUN/Creatinine Ratio 21.4 H Glucose 91 Calcium 10.0 Troponin T High Sens 13 Radiography Diagnostic Testing: Clinical Impression(s) from Imaging Studies Chest CTA 11/21/24 11:59 IMPRESSION: Multiple nonocclusive emboli of the right main pulmonary artery including subsegmental branches of the right middle and lower lobes. Findings were discussed with the patient's nurse Jemima fuller RN by phone on 11/21/2024 at 1245 hours. Reading Location: [facility] EKG Initial EKG: Attestation: I personally reviewed and interpreted this EKG as follows: Comments: Normal sinus rhythm ventricular rate of 88 bpm. Management Discussion w/another healthcare provider: Hospitalist (Dr Limon) and Plate Cutter (Dr Ivy Grimaldo) Discharge Plan Dx/Rx/DC Orders Clinical Impression: Acute dyspnea, Pulmonary embolism Disposition Disposition: Acute Care Hospital [facility]
[2024-11-21 11:53] LABS: Absolute Lymphocyte Count 3.14 X10^3/uL (0.83-4.51); Absolute Neutrophil Count 5.9 X10^3/uL (2.0-7.7); Basophil# 0.12 X10^3/uL; Basophil% 1.2 % (0-1); Eosinophil# 0.29 X10^3/uL; Eosinophils% 2.8 % (0-5); Hematocrit 42.2 % (40-54); Hemoglobin 14.5 g/dL (13.0-16.5); Lymphocyte # 3.14 X10^3/ul (0.83-4.51); Lymphocyte % 30.1 % (19-41); Mean Corp Hgb Conc 34.4 g/dL (32-36); Mean Corpuscular Hgb 30.6 pg (27.0-32.0); Mean Platelet Vol. 9.4 fl (6.2-12.0); Monocyte# 0.89 X10^3/uL; Monocyte% 8.5 % (0-10); NRBC Flagged by Analyzer 0 % (0-5); Neutrophil % 56.6 % (47-70); Platelet Count 365 K/mm3 (150-450); RBC Distribution Width CV 11.9 % (11.6-14.6); RBC Distribution Width SD 39.2 fl (35.1-43.9); Red Blood Count 4.74 M/mm3 (4.6-6.2); White Blood Count 10.4 K/mm3 (4.4-11.0)
--- NOTE | 2024-11-21 11:59 | CT_ITS ---
EXAM: CT Angiography Chest Without and With Intravenous Contrast CLINICAL INDICATION: TECHNIQUE: Axial computed tomographic angiography images of the chest without and with intravenous contrast. This CT exam was performed using one or more of the following dose reduction techniques: automated exposure control, adjustment of the mA and/or kV according to patient size, and/or use of iterative reconstruction technique. MIP reconstructed images were created and reviewed. COMPARISON: No relevant prior studies available. FINDINGS: PULMONARY ARTERIES: Multiple nonocclusive emboli of the right main pulmonary artery including subsegmental branches of the right middle and lower lobes. AORTA: No acute findings. No thoracic aortic aneurysm. LUNGS AND PLEURAL SPACES: Mild lung emphysema. HEART: Unremarkable. No cardiomegaly. No significant pericardial effusion. No evidence of RV dysfunction. BONES/JOINTS: No acute fracture. No dislocation. SOFT TISSUES: Unremarkable. LYMPH NODES: Unremarkable. No enlarged lymph nodes. CT/CTA Chest W/WO Contrast IMPRESSION: Multiple nonocclusive emboli of the right main pulmonary artery including subse gmental branches of the right middle and lower lobes. Findings were discussed with the patient's nurse Jemima fuller RN by phone on 11/21 at 1245 hours. Reading Location: [facility]
[2024-11-21 12:20] LABS: Anion Gap 13 (5-15); BUN 18 mg/dL (4-19); BUN/Creat Ratio 21.4 RATIO (10-20); Carbon Dioxide 23.4 mmol/L (21.0-32.0); Chloride 104 mmol/L (98-108); Creatinine, Serum 0.82 mg/dL (0.70-1.20); EST Glomerular Filtration Rate 106 (>60); Estimated Creatinine Clearance 135.34 ml/min (50-250); Glucose 91 mg/dL (70-99); Potassium 4.4 mmol/L (3.3-5.1); Sodium Level 140 mmol/L (133-145)
[2024-11-21 12:44] LABS: Troponin T High Sensitivity 13 ng/L (<=22)
[2024-11-21] MEDS: Heparin Injection (Vial) 5,000 UNIT/ML VIAL 8000 UNIT IV (13:16)
[2024-11-21] MEDS: HEPARIN/D5w 25,000 UNITS 25,000 UNITS/250 ML IV.SOLN. 15 UNITS CONT INF (13:20)
[2024-11-21 13:24] LABS: International Normalized Ratio 1.1; Prothrombin Time (Protime)PT. 14.1 SECONDS (11.7-14.9)
--- NOTE | 2024-11-21 13:24 | ED.RN ---
Meal tray ordered.
[2024-11-21 13:25] LABS: Partial Thromboplast Time 26.3 Seconds (24.1-36.2)
--- NOTE | 2024-11-21 13:33 | HP.PCM.HOS_ITS ---
HPI - General General Date of Admission: 11/21/24 Date of Service: 11/21/24 Chief Complaint: Shortness of breath on exertion HPI Narrative GILBERTO SALVADOR, is a 49 M who presented to [facility] ED on 11/21/2024 with shortness of breath on exertion. Patient had left meniscus surgery with Dr. Grimaldo about 6 weeks ago. He saw Dr. Grimaldo in the office today and noted that he has had some shortness of breath with exertion over the past few days. On further questioning, patient had a significant episode of shortness of breath with chest pain with exertion last and attributed this to acid reflux. Denies any significant lower extremity pain or swelling. Dr. Grimaldo sent him here today for further evaluation for PE. CTA chest did show multiple nonocclusive emboli of the right main pulmonary artery including subsegmental branches of the right middle and lower lobes; no evidence of right heart strain was noted. Patient stable on room air at rest, normotensive and not tachycardic in the ED. Case was discussed with Dr. Haynes who recommended starting heparin drip and admission for echo and further workup with possible thrombectomy. Hospitalist was then contacted for admission. I saw the patient at bedside in the ED, was present. Patient was sitting up comfortably in bed, conversing normally, in no acute distress. Patient was very pleasant. He denied any chest pain or shortness of breath at rest. Has no other significant medical history. No history of prior DVT/PE. Had been taking the aspirin twice daily as prescribed. No other acute concerns at this time. [facility] Medical History Meniscal injury Home Medications ?Medication ?Instructions ?Recorded ?Last Taken ?Type colostrum, bovine 500 mg capsule 500 mg PO DAILY suppl ement 03/28/20 03/28/20 08:00 History multivitamin with folic acid 400 1 tab PO DAILY vitami n 03/28/20 03/28/20 08:00 History mcg tablet aspirin 81 mg chewable tablet 1 tab PO DAILY 11/21/24 Unknown History Allergy/AdvReac Type Severity Reaction Status Date / Time peanut Allergy Other Verified 11/21/24 10:32 Surgical History S/P medial meniscal repair S/P lateral meniscal repair Social History Smoking Status: Former smoker ROS Constitutional Constitutional: Denies chills, fatigue, fever(s) or weakness Cardiovascular Cardiovascular: Reports dyspnea on exertion; Denies chest pain, edema, lightheadedness or palpitations Respiratory/Chest Respiratory/Chest: Denies cough, shortness of breath at rest or wheezing Gastrointestinal Gastrointestinal: Denies abdominal pain Musculoskeletal Musculoskeletal: Denies arthralgias, joint pain or myalgias Vital Signs Vital Signs Vital Signs: 11/21/24 10:28 11/21/24 10:49 11/21/24 12:28 Temperature 98.2 F Temperature Source Oral Pulse Rate 109 H 81 Respiratory Rate 18 15 Respiratory Effort Normal Short of Breath Blood Pressure 136/95 H 121/79 H Blood Pressure Mean 108 93 Pulse Ox 98 95 Oxygen Delivery Method Room Air Room Air Room Air Weight Weight: 111.5 kg Body Mass Index (BMI) 34.2 Physical Exam Const alert, oriented x3 and no apparent distress Constitutional Narrative: Pleasant middle-aged [place] male, class I obesity, sitting back comfortably in bed, conversing normally, in no acute distress. General Appearance: cooperative and comfortable HEENT normocephalic, head/scalp atraumatic, hearing grossly normal bilaterally, nasal mucous membranes and turbinates normal and moist oral mucous membranes Eyes PERRL, EOMs intact bilaterally and conjunctivae normal Neck full ROM Chest inspection of chest normal Resp normal respiratory effort, normal air movement, no use of accessory muscles and clear to auscultation bilaterally Cardio regular rate, regular rhythm, no murmurs and peripheral pulses 2+ throughout GI normal to inspection, nondistended, normoactive bowel sounds, soft to palpation, non-tender and non-distended Back/Spine normal ROM Extremity normal to inspection, full ROM and no pedal edema Extremity Narrative: Left knee with prior surgical incision sullivan with good healing noted. No edema or tenderness to palpation of bilateral lower extremities. Skin no rashes or lesions noted Psych mental status grossly normal Results Lab / Micro Data 11/21/24 11:17 11/21/24 11:17 Labs: Laboratory Results - last 24 hr 11/21/24 11:17: WBC 10.4, RBC 4.74, Hgb 14.5, Hct 42.2, MCV 89.0, MCH 30.6, MCHC 34.4, RDW Std Deviation 39.2, RDW Coeff of Dayanara 11.9, Plt Count 365, MPV 9.4, Immature Gran % (Auto) 0.800, Neut % (Auto) 56.6, Lymph % (Auto) 30.1, [place] % (Auto) 8.5, Eos % (Auto) 2.8, Baso % (Auto) 1.2 H, Absolute Neuts (auto) 5.9, Absolute Lymphs (auto) 3.14, Nucleated RBC % 0, PT 14.1, INR 1.1, APTT 26.3, Sodium 140, Potassium 4.4, Chloride 104, Carbon Dioxide 23.4, Anion Gap 13, BUN 18, Creatinine 0.82, Estim Creat Clear Calc 135.34, Est GFR (MDRD) Non-Af 106, B UN/Creatinine Ratio 21.4 H, Glucose 91, Calcium 10.0, Troponin T High Sens 13 Imaging Radiology Impression Chest CTA 11/21/24 11:59 IMPRESSION: Multiple nonocclusive emboli of the right main pulmonary artery including subsegmental branches of the right middle and lower lobes. Findings were discussed with the patient's nurse Jemima fuller RN by phone on 11/21/2024 at 1245 hours. Reading Location: [facility] Assessment & Plan Assessment/Plan (1) Pulmonary embolism: PLAN: Plan Patient is a 49-year-old male who presented [facility] ED on 11/21/2024 with shortness of breath on exertion. 1. Right-sided PE ? Admit under inpatient status to PCU. Vascular surgery consulted. CTA chest showed multiple nonocclusive emboli of the right main pulmonary artery; no right heart strain was called. Presumed provoked DVT after recent meniscus surgery. Stable on room air and not tachycardic in the ED. Troponin normal. BNP pending. Echo ordered. Bilateral lower extremity duplex ultrasound ordered. Continue treatment with heparin drip for now. Per vascular surgery, may be a candidate for thrombectomy but they will evaluate further tomorrow morning. Will keep n.p.o. at midnight. Presume that patient will need at least 3 months of anticoagulation on discharge. 2. Recent left meniscus surgery ? Had left meniscus repair done with Dr. Grimaldo 6 weeks prior to this admission. Plan was for him to be nonweightbearing until 11/21, will be okay for weightbearing while here. 3. Class I obesity ? BMI 34 on admit. Encouraged lifestyle modifications. Complicates hospital course, care and prognosis. DVT prophylaxis: Not indicated, on heparin drip CODE STATUS: Full code, verified Expected disposition: Home, 2 to 3 days Total clinical time spent by myself addressing the patient's medical issues, reviewing all the data, and collaborating with patient's care team: 55 minutes. Charges/Coding Visit Charges Inpatient E&M: 99374 Init Hosp L2
--- NOTE | 2024-11-21 13:57 | ECHOD_ITS ---
Reason For Study Reason For Study: Pulmonary Embolism Procedure This was a 2D Doppler, Color Flow transthoracic echocardiogram. Exam performed portable in ED. Left Ventricle Normal size and thickness. The left ventricular ejection fraction is 65 %. Diastolic function is indeterminate. Right Ventricle Normal RV size. Mild global right ventricular systolic dysfunction. Atria The left and right atria are normal. Mitral Valve Trivial mitral valve insufficiency. Tricuspid Valve Mild to moderate (1-2+) tricuspid valve insufficiency. Right ventricular systolic pressure estimated to be 59 mmHg. Aortic Valve Trisinus/trileaflet aortic valve. Trivial aortic valve insufficiency. Pulmonic Valve The pulmonic valve is not well visualized. Great Vessels Normal sized aortic root. Pericardium/Pleural No pericardial effusion. MMode/2D Measurements & Calculations LVIDd: 4.5 cm IVSd: 1.0 cm Ao root diam: 2.7 cm LVIDs: 2.9 cm LVPWd: 0.95 cm RVDd: 4.2 cm FS: 35.8 % LAV(MOD-bp): 24.5 ml LVAd ap4: 24.8 cm2 SV(MOD-sp4): 42.8 ml LAV(MOD-bp) Indexed: 10.7 ml/m2 LVLd ap4: 7.7 cm SI(MOD-sp4): 18.6 ml/m2 LAV(MOD-sp2): 19.6 ml EDV(MOD-sp4): 67.2 ml LAV(MOD-sp4): 26.5 ml EDV(sp4-el): 67.7 ml LVAs ap4: 13.3 cm2 LVLs ap4: 6.4 cm ESV(MOD-sp4): 24.5 ml ESV(sp4-el): 23.2 ml EF(MOD-sp4): 63.6 % EF(sp4-el): 65.8 % SV(sp4-el): 44.5 ml LA A4 area: 12.6 cm2 LA dimension(2D): 3.6 cm RA A4 area: 10.8 cm2 TAPSE: 2.2 cm Time Measurements MV dec time: 0.23 sec Doppler Measurements & Calculations MV E max lauro: 49.0 cm/sec Lat Peak E' Lauro: 9.0 cm/sec Med Peak E' Lauro: 9.0 cm/sec MV A max lauro: 67.1 cm/sec E/E' lat: 5.4 E/E' med: 5.4 MV E/A: 0.73 Ao V2 max: 130.4 cm/sec LV V1 max: 98.4 cm/sec MV dec slope: 211.4 cm/sec2 Ao max P.8 mmHg LV V1 max P.9 mmHg Ao V2 mean: 91.9 cm/sec Ao mean P.7 mmHg Ao V2 VTI: 21.5 cm PA V2 max: 81.1 cm/sec TR max lauro: 366.1 cm/sec TR max P.6 mmHg ECHO/Echo Complete Interpretation Summary The left ventricular ejection fraction is 65 %. Diastolic function is indeterminate. Mild global right ventricular systolic dysfunction. Mild to moderate (1-2+) tricuspid valve insufficiency. Right ventricular systolic pressure estimated to be 59 mmHg. Ordering Physician: Mark Limon Referring Physician: Preston De La Rosa Performed By: Bridgett Paul, MARU, RVT
--- NOTE | 2024-11-21 13:58 | VDLE_ITS ---
Reason For Study Reason For Study: HX PE RIGHT LEFT GSV is normal. GSV is normal. CFV is compressible, spontaneous, phasic, competent CFV is compressible, spontaneous, phasic, competent, and demonstrates normal augmentation. and demonstrates normal augmentation. FV is compressible, spontaneous, phasic, competent FV is compressible, spontaneous, phasic, competent and and demonstrates normal augmentation. demonstrates normal augmentation. POP V is compressible and patent with Rouleaux flow Acute deep vein thrombosis is noted in the POP V. It noted. is dilated and NONCOMPRESSIBLE. T/P Trunk is compressible. Acute deep vein thrombosis is noted in the T/P Trunk. PTV is compressible. It is dilated and NONCOMPRESSIBLE. RT PerV is compressible. Acute deep vein thrombosis is noted in the PTV. It is Procedure dilated and NONCOMPRESSIBLE. This is a venous duplex using B-mode, color flow and Acute deep vein thrombosis is noted in the Per V. It spectral Doppler. is dilated and NONCOMPRESSIBLE. Exam performed portable in patient room. The exam was diagnostic. A preliminary report was called and/or faxed to [facility]. VL/Venous Duplex US - Rachid Extrem Interpretation Summary Acute deep vein thrombosis noted in left popliteal vein, tibioperoneal trunk ve in, posterior tibial vein, peroneal vein. Deep veins of the right lower extremity are patent and compressible segmentally . There is no evidence of right lower extremity deep vein thrombosis. The right great saphenous veins appear patent a nd compressible segmentally. Ordering Physician: Mark Limon Referring Physician: Preston De La Rosa Performed By: Gary Horne RVT
[2024-11-21 14:55] LABS: Pro- Brain NATRIURETIC PEPTIDE 55 pg/mL (<=900)
[2024-11-22] VITALS (7 sets, daily range): BP systolic 115–138; BP diastolic 67–87; PULSE 82–95; RESP 16–18; TEMP 36.2–36.7; O2SAT 92–98
[2024-11-22 01:49] LABS: Partial Thromboplast Time 50.4 Seconds (24.1-36.2)
[2024-11-22] MEDS: HEPARIN/D5w 25,000 UNITS 25,000 UNITS/250 ML IV.SOLN. 16 UNITS CONT INF (05:53)
[2024-11-22 08:28] LABS: Hematocrit 42.1 % (40-54); Hemoglobin 14.6 g/dL (13.0-16.5); Mean Corp Hgb Conc 34.7 g/dL (32-36); Mean Corpuscular Hgb 30.9 pg (27.0-32.0); Mean Platelet Vol. 9.5 fl (6.2-12.0); Platelet Count 337 K/mm3 (150-450); RBC Distribution Width SD 39.4 fl (35.1-43.9); Red Blood Count 4.73 M/mm3 (4.6-6.2)
[2024-11-22 08:37] LABS: Partial Thromboplast Time 43.2 Seconds (24.1-36.2)
--- NOTE | 2024-11-22 08:38 | CON.PCM.SX_ITS ---
Assessment & Plan Assessment/Plan (1) Pulmonary embolism: PLAN: Plan He is minimally symptomatic and hemodynamically stable with no requirement for O2 supplementation and no evidence of heart strain on imaging or in lab workup so would not recommend thrombectomy as it is not likely to offer further benefit. Recommend anticoagulation with DOAC for 6 months. Will plan for follow-up on an outpatient basis for ongoing management. HPI Consult Data Date of Consult: 11/22/24 HPI Narrative HPI Narrative: GILBERTO SALVADOR, is a 49 M who presented to the [facility] ER as directed by his orthopedic surgeon with dyspnea on exertion. In the ER, he was saturating well on room air, normotensive, and in sinus rhythm. He had a CTA which revealed acute PE in the R main pulmonary artery and segmental branches without any RV strain. He was admitted on heparin drip and we are consulted for consideration of thrombectomy. He subsequently has had negative serial troponin and BNP. He had echo which also did not suggest any acute RV strain. He reports that thinking back, last he had gotten up and had some sudden shortness of breath and almost burning/heartburn like chest pain. The chest pain was brief and resolved fully. The dyspnea has persisted. He was seen by his orthopedic surgeon yesterday and mentioned the SOB which is what brought him to the ER. He states he had not noticed any significant increase in lower extremity edema, pain, redness, or warmth. He has not had any prior VTE. At home, he has been significantly less active since his knee procedure and when he is up he is using crutches. On my examination, he was resting comfortably in the bedside chair with his at bedside. He reports no SOB or chest pain at rest. He is saturating mid-high 90s on room air. He has remained normotensive without tachycardia. He states that yesterday he would feel SOB with even short distances, but also having some added limitation/energy exertion using crutches. Nursing performed ambulatory pulse oximetry this afternoon and he did not have any significant desaturation. Venous duplex showed acute L popliteal, TP trunk, peroneal, and posterior tibial DVT. [facility] Medical History Meniscal injury Home Medications ?Medication ?Instructions ?Recorded ?Last Taken ?Type colostrum, bovine 500 mg capsule 500 mg PO DAILY suppl ement 03/28/20 03/28/20 08:00 History multivitamin with folic acid 400 1 tab PO DAILY vitami n 03/28/20 03/28/20 08:00 History mcg tablet aspirin 81 mg chewable tablet 1 tab PO DAILY 11/21/24 Unknown History Allergy/AdvReac Type Severity Reaction Status Date / Time peanut Allergy Other Verified 11/21/24 10:32 Family History (Updated 11/21/24 @ 18:26 by Ofelia Gonzalez) Grandfather Diabetes Surgical History S/P medial meniscal repair S/P lateral meniscal repair Social History Smoking Status: Former smoker Physical Exam Const alert, oriented x3 and no apparent distress General Appearance: cooperative and comfortable HEENT normocephalic, hearing grossly normal bilaterally, external ears normal and external nose normal Nose: external nose normal Eyes General Eye: normal appearance of both eyes Neck General: normal visual inspection and trachea midline Resp normal respiratory effort and no use of accessory muscles Effort and Inspection: able to speak in complete sentences; Negative for labored, grunting, stridor or retractions Cardio regular rate and regular rhythm Extremity General Extremity: edema left (trace) lower extremity Skin no rashes or lesions noted Neuro oriented x3, CN's II-XII intact bilaterally, moves all extremities and no focal motor deficits Speech: speech normal Psych mental status grossly normal Appearance: grossly normal Attitude: calm and engaged Activity / Motor Behavior: appropriate eye contact Speech: normal speech Mood & Affect: euthymic mood Judgement: judgement good Lab / Micro Data 11/22/24 07:56 11/22/24 07:56 Labs: Laboratory Results - last 24 hr 11/21/24 11:17: WBC 10.4, RBC 4.74, Hgb 14.5, Hct 42.2, MCV 89.0, MCH 30.6, MCHC 34.4, RDW Std Deviation 39.2, RDW Coeff of Dayanara 11.9, Plt Count 365, MPV 9.4, Immature Gran % (Auto) 0.800, Neut % (Auto) 56.6, Lymph % (Auto) 30.1, [place] % (Auto) 8.5, Eos % (Auto) 2.8, Baso % (Auto) 1.2 H, Absolute Neuts (auto) 5.9, Absolute Lymphs (auto) 3.14, Nucleated RBC % 0, PT 14.1, INR 1.1, APTT 26.3, Sodium 140, Potassium 4.4, Chloride 104, Carbon Dioxide 23.4, Anion Gap 13, BUN 18, Creatinine 0.82, Estim Creat Clear Calc 135.34, Est GFR (MDRD) Non-Af 106, B UN/Creatinine Ratio 21.4 H, Glucose 91, Calcium 10.0, Troponin T High Sens 13, NT pro BNP II 55 11/21/24 19:15: APTT 55.0 H 11/22/24 01:27: APTT 50.4 H 11/22/24 07:56: WBC 10.0, RBC 4.73, Hgb 14.6, Hct 42.1, MCV 89.0, MCH 30.9, MCHC 34.7, RDW Std Deviation 39.4, RDW Coeff of Dayanara 12.0, Plt Count 337, MPV 9.5, A PTT 43.2 H Imaging Radiology Impression Chest CTA 11/21/24 11:59 IMPRESSION: Multiple nonocclusive emboli of the right main pulmonary artery including subsegmental branches of the right middle and lower lobes. Findings were discussed with the patient's nurse Jemima fuller RN by phone on 11/21/2024 at 1245 hours. Reading Location: [facility] Echocardiogram 11/21/24 13:57 Interpretation Summary The left ventricular ejection fraction is 65 %. Diastolic function is indeterminate. Mild global right ventricular systolic dysfunction. Mild to moderate (1-2+) tricuspid valve insufficiency. Right ventricular systolic pressure estimated to be 59 mmHg. Ordering Physician: Mark Limon Referring Physician: Preston De La Rosa Performed By: Bridgett Paul, MARU, RVT Charges/Coding Visit Charges Inpatient E&M: 06360 Init Hosp L2
[2024-11-22] MEDS: Heparin Injection (Vial) 5,000 UNIT/ML VIAL IV ×3 (08:49→22:28)
[2024-11-22 09:18] LABS: Anion Gap 14 (5-15); BUN 14 mg/dL (4-19); BUN/Creat Ratio 20.4 RATIO (10-20); Calcium,Total 9.2 mg/dL (7.6-11.0); Carbon Dioxide 20.2 mmol/L (21.0-32.0); Chloride 105 mmol/L (98-108); Creatinine, Serum 0.71 mg/dL (0.70-1.20); EST Glomerular Filtration Rate 111 (>60); Estimated Creatinine Clearance 156.21 ml/min (50-250); Glucose 115 mg/dL (70-99); Potassium 4.2 mmol/L (3.3-5.1); Sodium Level 139 mmol/L (133-145)
--- NOTE | 2024-11-22 09:55 | CASEMGMT ---
RN CM Face to Face with patient for initial transition planning/care coordination assessment. RN CM introduced self and role at [facility]. Patient standing at window, alert and oriented, at bedside. Patient willing to participate in assessment and is able to answer all questions appropriately. Care providers, pharmacy, and demographics verified. Strata: 1 PCP: Estrella Specialists: quoc Grimaldo Pharmacy: [facility] Retail at discharge, Insurance: none Prescription Benefit: none Living Will/HPOA: none LNOK: Living Arrangements: Patient lives with in [place]. Patient is independent and able to ambulate stairs. Transportation: Driving service DME/HHC: Patient has cane, walker, crutches, shower chair, and grab bars at home. No previous HHC or SNF. Patient wishes to discharge home, denies need for home health at this time. Patient states he has no further needs or concerns at this time. CM to follow for discharge planning needs that may arise. Disposition Plan: Patient to discharge home with family support and follow-up plans in place. Savana ORTA, RN, CM
--- NOTE | 2024-11-22 11:49 | PCM.PN.HOSP ---
Reason for Visit Reason for Visit: Diagnoses Other pulmonary embolism without acute cor pulmonale (11/21/24) Subjective Subjective Patient is a 49-year-old gentleman who underwent left meniscus surgery 6 weeks prior who presented to the emergency department with shortness of breath diagnosed with acute pulmonary embolism admitted to monitored bed for further management Objective Data Objective Data Vital Signs: Vital Signs Temp Pulse Resp BP Pulse Ox O2 Del Method 97.2 F L 85 18 124/74 H 94 Room Air 11/22/24 08:55 11/22/24 08:55 11/22/24 08:55 11/22/24 08:55 11/22/24 08:55 11/22/24 09:10 Oxygen Delivery Method Room Air Weight: 111.357 kg Body Mass Index (BMI) 34.2 Intake & Output: Intake and Output for Last 24 Hours 11/20/24 11/21/24 11/22/24 23:59 23:59 23:59 Intake Total 647.2 / 647.2 Balance 647.2 / 647.2 Lab / Micro Data 11/22/24 07:56 11/22/24 07:56 Labs: Laboratory Results - last 24 hr 11/21/24 11:17: WBC 10.4, RBC 4.74, Hgb 14.5, Hct 42.2, MCV 89.0, MCH 30.6, MCHC 34.4, RDW Std Deviation 39.2, RDW Coeff of Dayanara 11.9, Plt Count 365, MPV 9.4, Immature Gran % (Auto) 0.800, Neut % (Auto) 56.6, Lymph % (Auto) 30.1, [place] % (Auto) 8.5, Eos % (Auto) 2.8, Baso % (Auto) 1.2 H, Absolute Neuts (auto) 5.9, Absolute Lymphs (auto) 3.14, Nucleated RBC % 0, PT 14.1, INR 1.1, APTT 26.3, Sodium 140, Potassium 4.4, Chloride 104, Carbon Dioxide 23.4, Anion Gap 13, BUN 18, Creatinine 0.82, Estim Creat Clear Calc 135.34, Est GFR (MDRD) Non-Af 106, BUN/Creatinine Ratio 21.4 H, Glucose 91, Calcium 10.0, Troponin T High Sens 13, NT pro BNP II 55 11/21/24 19:15: APTT 55.0 H 11/22/24 01:27: APTT 50.4 H 11/22/24 07:56: WBC 10.0, RBC 4.73, Hgb 14.6, Hct 42.1, MCV 89.0, MCH 30.9, MCHC 34.7, RDW Std Deviation 39.4, RDW Coeff of Dayanara 12.0, Plt Count 337, MPV 9.5, APTT 43.2 H, Sodium 139, Potassium 4.2, Chloride 105, Carbon Dioxide 20.2 L, Anion Gap 14, BUN 14, Creatinine 0.71, Estim Creat Clear Calc 156.21, Est GFR (MDRD) Non-Af 111, BUN/Creatinine Ratio 20.4 H, Glucose 115 H, Calcium 9.2 Radiography Diagnostic Testing: Radiology Impression Chest CTA 11/21/24 11:59 IMPRESSION: Multiple nonocclusive emboli of the right main pulmonary artery including subsegmental branches of the right middle and lower lobes. Findings were discussed with the patient's nurse Jemima fuller RN by phone on 11/21/2024 at 1245 hours. Reading Location: [facility] Echocardiogram 11/21/24 13:57 Interpretation Summary The left ventricular ejection fraction is 65 %. Diastolic function is indeterminate. Mild global right ventricular systolic dysfunction. Mild to moderate (1-2+) tricuspid valve insufficiency. Right ventricular systolic pressure estimated to be 59 mmHg. Ordering Physician: Mark Limon Referring Physician: Preston De La Rosa Performed By: Bridgett Paul, MARU, RVT Physical Exam Narrative GENERAL: cooperative HEENT: Atraumatic; normocephalic EYES; Anicteric, Normal Conjunctiva NECK; supple, normal thyroid, RESPIRATORY: Diminished to auscultation CARDIOVASCULAR: Regular S1 S2, GI: soft, normoactive bowel sounds, : No Renal angle tenderness; EXTREMITIES: No edema, no clubbing, MUSCULOSKELETAL: no muscle wasting NEURO: Awake; no lateralizing signs. SKIN: No Rash PSYCH; Flat affect Assessment & Plan Assessment/Plan (1) Pulmonary embolism: PLAN: Plan Patient is a 49-year-old gentleman who underwent left meniscus surgery 6 weeks prior who presented to the emergency department with shortness of breath diagnosed with acute pulmonary embolism admitted to monitored bed for further management 1. Acute pulmonary embolism ? CTA of the chest obtained on admission demonstrated Multiple nonocclusive emboli of the right main pulmonary artery including subsegmental branches of the right middle and lower lobes. Patient acute pulmonary embolism presumed to be provoked. Patient was started on heparin. Admitted to monitored bed consult placed to vascular surgery for consideration for possible thrombectomy. 2D echo demonstrated .Right ventricular systolic pressure estimated to be 59 mmHg. 2. Acute cor pulmonale ? Secondary to pulmonary embolism management as discussed above 3. Recent left meniscus surgery ? Had left meniscus repair done with Dr. Grimaldo 6 weeks prior to this admission. Plan was for him to be nonweightbearing until 11/21, 4. Class I obesity BMI 34 on admit. - Encouraged lifestyle modifications. Complicates hospital course, care and prognosis. Time spent in the patient's overall evaluation,decision-making process, review of diagnostic data, adjustment of management, discussion with other providers, nursing nursing and ancillary staff involved in patient's care documentation, 52 Minutes Charges/Coding Visit Charges Inpatient E&M: 39941 Subs Hosp L3
[2024-11-22 15:08] LABS: Partial Thromboplast Time 51.8 Seconds (24.1-36.2)
--- NOTE | 2024-11-22 16:41 | CHAPLAIN ---
Type of Pastoral Visit _x__ Initial Visit ___ Follow-up Visit ___ On-call Visit ___ General Patient Visit ___ Spiritual Assessment ___ Family Conference ___ Bereavement ___ Rapid Response ___ Code Blue ___ Other (describe below) Pastoral Care Referral From _x__ Patient ___ Family ___ Nurse ___ Physician ___ Mine Expert ___ Interpreter Deaf ___ Other (describe below) Sacrament/Intervention _x__ Active listening ___ Anointing ___ Orthodox ___ Bereavement ___ Communion ___ Kailyn exploration ___ ___ Life review ___ Prayer ___ Reconciliation ___ Sacrament of Sick _x__ Supportive presence ___ Wedding ___ Other (describe below) Pastoral Comments patient and spouse are together; pt is welcoming and makes light hearted jokes; pt does admit to the seriousness of his health need but has good support, is thankful for medical care, knows that his children are being cared for, and that his is with him; pt denies further needs of support
[2024-11-22] MEDS: HEPARIN/D5w 25,000 UNITS 25,000 UNITS/250 ML IV.SOLN. 18 UNITS CONT INF (20:05)
[2024-11-22 22:19] LABS: Partial Thromboplast Time 53.1 Seconds (24.1-36.2)
[2024-11-23 04:48] LABS: Partial Thromboplast Time 66.2 Seconds (24.1-36.2)
[2024-11-23 04:55] VITALS: BP 139/82; PULSE 75; RESP 16; TEMP 36.2; O2SAT 95
[2024-11-23 07:30] VITALS: O2SAT 97
[2024-11-23 08:16] LABS: Absolute Lymphocyte Count 3.52 X10^3/uL (0.83-4.51); Absolute Neutrophil Count 4.7 X10^3/uL (2.0-7.7); Basophil# 0.12 X10^3/uL; Basophil% 1.2 % (0-1); Eosinophil# 0.41 X10^3/uL; Eosinophils% 4.2 % (0-5); Hematocrit 39.2 % (40-54); Hemoglobin 13.5 g/dL (13.0-16.5); Lymphocyte # 3.52 X10^3/ul (0.83-4.51); Lymphocyte % 36.3 % (19-41); Mean Corp Hgb Conc 34.4 g/dL (32-36); Mean Corpuscular Hgb 31.3 pg (27.0-32.0); Mean Corpuscular Volume 90.7 fL (80-94); Mean Platelet Vol. 9.8 fl (6.2-12.0); Monocyte# 0.87 X10^3/uL; NRBC Flagged by Analyzer 0 % (0-5); Neutrophil # 4.73 X10^3/uL (2.7-7.7); Neutrophil % 48.9 % (47-70); Platelet Count 330 K/mm3 (150-450); Red Blood Count 4.32 M/mm3 (4.6-6.2); White Blood Count 9.7 K/mm3 (4.4-11.0)
--- NOTE | 2024-11-23 10:28 | PCM.DC.SUM ---
Providers Date of Admission: 11/21/24 Date of Discharge: 11/23/24 Primary Care Physician: Dr. Preston De La Rosa, Consultations 11/21/24 16:42 Consult: Vascular Surgery Routine Consulting Provider: Mukesh Haynes Reason for Consult: large right sided PE EMERGENT Consult: No MD Notified: Yes Date Notified: 11/21/24 Time Notified: 17:37 Method of Notification: Verbal Reason For Visit: SOB Diagnosis Discharge Diagnosis (1) Pulmonary embolism: Status: Acute Code(s): I26.99 - Other pulmonary embolism without acute cor pulmonale Plan Patient is a 49-year-old gentleman who underwent left meniscus surgery 6 weeks prior who presented to the emergency department with shortness of breath diagnosed with acute pulmonary embolism admitted to monitored bed for further management 1. Acute pulmonary embolism ? CTA of the chest obtained on admission demonstrated Multiple nonocclusive emboli of the right main pulmonary artery including subsegmental branches of the right middle and lower lobes. Patient acute pulmonary embolism presumed to be provoked. Patient was started on heparin. Admitted to monitored bed consult placed to vascular surgery for consideration for possible thrombectomy. 2D echo demonstrated .Right ventricular systolic pressure estimated to be 59 mmHg. ? 11/23/2024 patient did not require thrombectomy patient discharged home on apixaban starter Dosepak with plans for patient to follow-up with Dr. Haynes 2. Acute cor pulmonale ? Secondary to pulmonary embolism management as discussed above 3. Recent left meniscus surgery ? Had left meniscus repair done with Dr. Grimaldo 6 weeks prior to this admission. Plan was for him to be nonweightbearing until 11/21, 4. Class I obesity BMI 34 on admit. - Encouraged lifestyle modifications. Complicates hospital course, care and prognosis. Time spent in the patient's overall evaluation,decision-making process, review of diagnostic data, adjustment of management, discussion with other providers, nursing nursing and ancillary staff involved in patient's care documentation, 35 Minutes Medications at Discharge Home Medications colostrum, bovine 500 mg capsule 500 mg PO DAILY supplement 03/28/20 multivitamin with folic acid 400 mcg tablet 1 tab PO DAILY vitamin 03/28/20 apixaban 5 mg (74 tabs) tablets in a dose pack (Eliquis DVT-PE Treat 30D Start) 5 mg PO BID 30 days #60 tabs 11/23/24 Physical Exam Narrative GENERAL: cooperative HEENT: Atraumatic; normocephalic EYES; Anicteric, Normal Conjunctiva NECK; supple, normal thyroid, RESPIRATORY: Diminished to auscultation CARDIOVASCULAR: Regular S1 S2, GI: soft, normoactive bowel sounds, : No Renal angle tenderness; EXTREMITIES: No edema, no clubbing, MUSCULOSKELETAL: no muscle wasting NEURO: Awake; no lateralizing signs. SKIN: No Rash PSYCH; Flat affect Weight / BMI Weight Weight: 111.357 kg Body Mass Index (BMI) 34.2 ABG / Lab / Microbiology Data 11/23/24 04:17 11/22/24 07:56 Laboratory: Laboratory Results - last 24 hr 11/22/24 14:49: APTT 51.8 H 11/22/24 21:54: APTT 53.1 H 11/23/24 04:17: WBC 9.7, RBC 4.32 L, Hgb 13.5, Hct 39.2 L, MCV 90.7, MCH 31.3, MCHC 34.4, RDW Std Deviation 40.0, RDW Coeff of Dayanara 12.0, Plt Count 330, MPV 9.8, Immature Gran % (Auto) 0.400, Neut % (Auto) 48.9, Lymph % (Auto) 36.3, [place] % (Auto) 9.0, Eos % (Auto) 4.2, Baso % (Auto) 1.2 H, Absolute Neuts (auto) 4.7, Absolute Lymphs (auto) 3.52, Nucleated RBC % 0, APTT 66.2 H Radiography Diagnostic Testing: Radiology Impression Venous Doppler Study 11/21/24 13:58 Interpretation Summary Acute deep vein thrombosis noted in left popliteal vein, tibioperoneal trunk vein, posterior tibial vein, peroneal vein. Deep veins of the right lower extremity are patent and compressible segmentally. There is no evidence of right lower extremity deep vein thrombosis. The right great saphenous veins appear patent and compressible segmentally. Ordering Physician: Mark Limon Referring Physician: Preston De La Rosa Performed By: Gary Horne Levar D/C Instructions Discharge Diet: No restrictions Discharge Activity: Return to Normal Activity Call your doctor if you observe: Fever of 101 or Higher, Shortness of breath, Fainting spells and Chest pain DC O2, CPAP, BIPAP Needs Home O2 Discharge instructions: No Meaningful Use Info Meaningful Use Meaningful Use Diagnoses (Choose all that apply): VTE Ischemic Stroke Statin Dosing Therapy Reference: STATIN DOSE THERAPY REFERENCE: * Patients > 75 years receive moderate or high dose statin therapy. * Patients 75 years or YOUNGER should receive HIGH intensity statin dose unless contraindicated. You will be required to document reason for non-treatment if statin daily dose does not meet guidelines. HIGH DOSE STATIN THERAPY DAILY Atorvastatin > than or = to 40 mg Rosuvastatin > than or = to 20 mg Amlodipine + Atorvastatin > than or = to 2.5/40 mg Ezetimibe + Simvastatin 10/80 mg Simvastatin 80mg VTE Anticoag overlap given w/in hospital stay or rx'd at dc?: No Reason overlap not ordered, prescribed, or given for 5 days: Treatment Not Indicated Discharge Plan Admission Admit Date/Time: 11/21/24 13:54 Attending Provider: Venu Corral Primary Care Provider: Preston De La Rosa Consulting Providers: Mukesh Haynes; Mark Limon Discharge Orders/Prescriptions Prescriptions: New Eliquis DVT-PE Treat 30D Start 5 mg (74 tabs) tablets,dose pack 5 mg PO BID 30 Days Qty: 60 0RF Rx Instructions: 10 mg p.o. twice daily for 7 days then 5 mg p.o. twice daily Continued multivitamin with folic acid 1 TABLET tablet 1 tab PO DAILY colostrum, bovine 500 MG capsule 500 mg PO DAILY Discontinued aspirin 81 mg tablet,chewable 1 tab PO DAILY Referrals / Follow Up: Preston De La Rosa DO [Primary Care Provider] - Within 2 Weeks Mukesh Haynes MD [Med Staff - Active Staff] - Within 2 Weeks Disposition Disposition (needs filled in before D/C Order can be placed): Home, Self Care Charges/Coding Visit Charges Inpatient E&M: 09132 Disch Hosp >30min
[2024-11-23 10:55] VITALS: BP 125/79; PULSE 68; RESP 16; TEMP 36.4; O2SAT 95
[2024-11-23 11:15] LABS: Partial Thromboplast Time 57.8 Seconds (24.1-36.2)
[2024-11-23] MEDS: Multivitamins,Therapeutic Tablet 1 TABLET PO (12:03)
[2024-11-23] MEDS: APIXABAN 5 MG TABLET 10 MG PO (12:04)
--- NOTE | 2024-11-23 13:15 | CASEMGMT ---
Patient has order for discharge. Patient discharging on Eliquis, JACKELYN THAPA called [facility] and requested 30 day free trial card be applied as patient does not have prescription coverage. JACKELYN CM in to discuss needs at discharge. Patient denies needs or help at discharge. Patient states he will resume outpatient therapy at [facility]. Patient had no further questions or concerns.
== END 2024-11-23 14:11 | disposition home or self-care (01) | DRG 175 ==
LOC: ED 13:09 → PCU 16:00
PROVIDERS: Admitting Provider Hospitalist; Emergency Provider Emergency Medicine; PCP Family Medicine; Visit Provider Internal Medicine
DX: I26.09 Other pulmonary embolism with acute cor pulmonale (principal); E66.811 Obesity, class 1; Z68.34 Body mass index [BMI] 34.0-34.9, adult; Z87.891 Personal history of nicotine dependence
CPT/HCPCS: 36415; 71275; 80048; 83880; 84484; 85025; 85027; 85610; 85730; 93005; 93306; 93970; 99285; 99406; Q9967; A4216

== ENCOUNTER → 2025-05-14 | Outpatient (CLI) | payer SELFPAY ==
--- NOTE | 2025-05-14 12:29 | VDLE_ITS ---
Reason For Study Reason For Study: Left leg swelling RIGHT LEFT CFV is compressible, spontaneous, phasic, competent GSV is normal. and demonstrates normal augmentation. CFV is compressible, spontaneous, phasic, competent, Procedure and demonstrates normal augmentation. This is a venous duplex using B-mode, color flow and FV is compressible, spontaneous, phasic, competent spectral Doppler. and demonstrates normal augmentation. Exam performed in department. POP V is compressible, spontaneous, phasic, competent Compared to 11/21/2024. and demonstrates normal augmentation. A preliminary report was called and/or faxed to [facility] T/P Trunk is compressible. PA. PTV is compressible. LT PerV is compressible. Nonvascularized structure noted in the left popliteal fossa that measures 0.80 x 2.92 x 3.77 cm. VL/Venous Duplex US, Unilateral Interpretation Summary Deep veins of the left lower extremity are patent and compressible segmentally. There is no evidence of left lower extremity deep vein thrombosis. The left great saphenous vein appears patent an d compressible segmentally. Nonvascularized structure noted in the left popliteal fossa that measures 0.80 x 2.92 x 3.77 cm. Ordering Physician: Mely Aguilar Referring Physician: Preston De aL Rosa Performed By: Savana Mcnamara RVT
--- NOTE | 2025-05-14 12:29 | ECHOD_ITS ---
Reason For Study Reason For Study: PULMONARY EMBOLISM F/U Procedure This was a 2D Doppler, Color Flow transthoracic echocardiogram. The study was technically difficult. Exam performed in department. Left Ventricle Normal LV size. Left ventricular systolic function is normal. The left ventricular ejection fraction is 60 %. No regional wall motion abnormalities noted. Right Ventricle Normal RV size. Normal systolic function. Atria Normal left atrium. Normal right atrium. Mitral Valve Normal mitral valve. Tricuspid Valve Normal tricuspid valve. Unable to estimate RV systolic pressure due to inadequate jet, pulmonary artery pressure probably normal. Aortic Valve Trisinus/trileaflet aortic valve. Pulmonic Valve Normal pulmonic valve. Great Vessels Normal aortic root. The pulmonary artery is normal size. Inferior vena cava collapse with respiration. Pericardium/Pleural No pericardial effusion. MMode/2D Measurements & Calculations LVIDd: 4.6 cm IVSd: 1.1 cm LVOT diam: 2.2 cm LVIDs: 3.2 cm LVPWd: 1.1 cm LVOT area: 3.8 cm2 RVDd: 3.8 cm FS: 30.2 % asc Aorta Diam: 3.1 cm LAV(MOD-bp): 39.5 ml LVAd ap4: 29.8 cm2 LAV(MOD-bp) Indexed: 17.2 ml/m2 LVLd ap4: 8.3 cm LAV(MOD-sp2): 40.4 ml EDV(MOD-sp4): 90.7 ml LAV(MOD-sp4): 36.6 ml EDV(sp4-el): 90.8 ml LVAs ap4: 16.0 cm2 LVLs ap4: 6.8 cm ESV(MOD-sp4): 32.0 ml ESV(sp4-el): 31.9 ml EF(MOD-sp4): 64.7 % EF(sp4-el): 64.9 % LVAd ap2: 21.8 cm2 SV(MOD-sp4): 58.7 ml SV(MOD-sp2): 30.8 ml LVLd ap2: 8.0 cm SI(MOD-sp4): 25.6 ml/m2 SI(MOD-sp2): 13.4 ml/m2 EDV(MOD-sp2): 51.5 ml EDV(sp2-el): 50.2 ml LVAs ap2: 12.0 cm2 LVLs ap2: 6.5 cm ESV(MOD-sp2): 20.7 ml ESV(sp2-el): 18.8 ml EF(MOD-sp2): 59.9 % SV(sp4-el): 59.0 ml Ao sinus diam: 3.[address] Junction: 2.5 cm LA dimension(2D): 3.9 cm LA A4 area: 16.4 cm2 RA A4 area: 16.0 cm2 TAPSE: 2.0 cm Time Measurements MV dec time: 0.15 sec Doppler Measurements & Calculations MV E max lauro: 82.3 cm/sec Lat Peak E' Lauro: 10.3 cm/sec Med Peak E' Lauro: 12.5 cm/sec MV A max lauro: 77.6 cm/sec E/E' lat: 8.0 E/E' med: 6.6 MV E/A: 1.1 MV dec slope: 564.6 cm/sec2 Ao V2 max: 109.1 cm/sec LV V1 max: 101.6 cm/sec Ao max P.8 mmHg LV V1 max P.1 mmHg Ao V2 mean: 78.4 cm/sec LV V1 mean P.2 mmHg Ao mean P.8 mmHg LV V1 mean: 68.2 cm/sec Ao V2 VTI: 24.2 cm LV V1 VTI: 20.8 cm AV (velocity ratio): 0.86 NORA(I,D): 3.3 cm2 NORA(V,D): 3.5 cm2 SV(LVOT): 78.9 ml PA V2 max: 84.8 cm/sec ECHO/Echo Complete Interpretation Summary Normal LV size. Left ventricular systolic function is normal. The left ventricular ejection fraction is 60 %. Unable to estimate RV systolic pressure due to inadequate jet, pulmonary artery pressure probably normal. Ordering Physician: Mely Aguilar Referring Physician: Mely Aguilar Performed By: Patricia Stein RDCS
== END | disposition home or self-care (01) ==
LOC: CVS 12:28
PROVIDERS: PCP Family Medicine; Referring Provider Physician Assistant; Visit Provider Physician Assistant
DX: I26.99 Other pulmonary embolism without acute cor pulmonale (principal)
CPT/HCPCS: 93306; 93971

== ENCOUNTER → 2025-09-03 | Outpatient (CLI) | payer SELFPAY ==
--- NOTE | 2025-09-03 11:15 | VDLE_ITS ---
Reason For Study Reason For Study: Swelling RLE RIGHT LEFT GSV is normal. CFV is compressible, spontaneous, phasic, competent, CFV is compressible, spontaneous, phasic, competent and demonstrates normal augmentation. and demonstrates normal augmentation. FV is compressible, spontaneous, phasic, competent and demonstrates normal augmentation. POP V is compressible, spontaneous, phasic, competent and demonstrates normal augmentation. T/P Trunk is compressible. PTV is compressible. RT PerV is compressible. Procedure This is a venous duplex using B-mode, color flow and spectral Doppler. Exam performed in department. A preliminary report was called and/or faxed to [facility]. VL/Venous Duplex US, Unilateral Interpretation Summary Deep veins of the right lower extremity are patent and compressible segmentally . There is no evidence of right lower extremity deep vein thrombosis. Valvular competence appears intact within the p roximal deep venous system on the right . The right great saphenous vein appears patent and compressible segmentally. The left common femoral vein is patent and compressible . Ordering Physician: Jody Stacy Referring Physician: Jody Stacy Performed By: Bridgett Paul, MARU, RVT
== END | disposition home or self-care (01) ==
LOC: CVS 11:11
DX: R22.41 Localized swelling, mass and lump, right lower limb (principal); M25.561 Pain in right knee
CPT/HCPCS: 93971

== ENCOUNTER → 2025-09-06 | Outpatient (CLI) | payer SELFPAY ==
--- NOTE | 2025-09-06 16:58 | MRI_ITS ---
PROCEDURE: LOWER EXT JOINT ONLY (ROUTINE) 09/06/2025 REASON FOR EXAM: SPRAIN OF RIGHT KNEE PAIN TECHNIQUE: MRI of the right lower Extremity. Multiplanar and multisequence images were obtained without IV contrast administration. COMPARISON: COMPARISON : None. FINDINGS: Bone Marrow: No marrow edema. Effusion: Small joint effusion. Soft Tissues: Small popliteal cyst. Ligaments and Tendons: Fluid superficial to the medial collateral ligament without complete tear. The anterior and posterior cruciate ligaments are intact. Horizontal tear of the posterior horn of the medial meniscus. Tiny marginal patellar, femoral, and tibial osteophytes. Mild partial-thickness cartilaginous thinning. MRI/Lower Ext Joint Only (Routine) IMPRESSION: 1. Probable MCL strain/sprain with small right knee effusion. 2. The cruciate ligaments are intact. Probable horizontal tear of the posteri or horn of the medial meniscus. 3. Mild tricompartmental osteoarthritic degenerative changes of the right knee . Reading Location: [id number]
== END | disposition home or self-care (01) ==
LOC: MRI 16:51
DX: S83.8X1A Sprain of other specified parts of right knee, initial encounter (principal); M25.561 Pain in right knee
CPT/HCPCS: 73721